=== PATIENT | male | born 1980 | race African-American/Black ===

== ENCOUNTER 2016-05-31 23:55 | Inpatient (IN) | payer OTHER ==
--- NOTE | ~2016-05-31 | CN ---
Consultation Report [facility] [address] [place]. [address] NAME: MADY NICHOLAS : 78 STATUS : ADM Abel PAT#: [id number] AGE: 36 ADM/REG DATE : 06/01/16 MR#: [id number] REPORT SERV DATE: 06/03/16 DICTATED BY: DAMIR MARTINEZ DATE: 06/03/16 REPORT STATUS : Draft TRANSCRIBED BY: MODL DATE: 06/03/16 DATE OF CONSULTATION: REASON FOR CONSULTATION: Elevation in serum creatinine. HISTORY OF PRESENT ILLNESS: This is a very pleasant 36-year-old male patient, who is admitted to [facility] with initial complaint of abdominal pain. He was found to have a ruptured appendix and is POD #2 from laparoscopic excision and appendectomy. He reports a decreased appetite according to initial history and physical prior to evaluation here at [facility] secondary to ongoing abdominal pain. He denies associated nausea and vomiting, and he does not chronically use nonsteroidal medications or supplements in the outpatient setting. The patient does not regularly seek out medical evaluations as he has overall remained reasonably healthy. He does medicinally use marijuana with frequency of daily and has previously used cocaine, although recreationally and on a very rare basis. He continues to use tobacco products, smoking approximately one pack a week per his assessment. 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 The patient is sitting at bedside this afternoon. He denies current chest pain. No nausea, vomiting, or diarrhea and is in no acute distress. His family is present during evaluation. PAST MEDICAL HISTORY: None. PAST SURGICAL HISTORY: POD #2 laparoscopic appendectomy. HOME MEDICATIONS: None. ALLERGIES: NONE. 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 He uses marijuana daily and denies chronic EtOH use. Has previously used cocaine medicinally, but states that he no longer uses it. FAMILY HISTORY: Positive for hypertension and diabetes. REVIEW OF SYSTEMS: Completed, please see HPI for pertinent details. PHYSICAL EXAMINATION: VITAL SIGNS: Blood pressure at 164/102, temperature at 98.4, respiratory rate at 16, he is 95% on room air, heart rate 82 beats per minute and regular. GENERAL: He is awake, alert and oriented x3, in no acute distress, sitting at bedside during evaluation. HEENT: Normocephalic and atraumatic. Normal ocular movements. No scleral icterus or Consultation Report [place] [address] [place]. [address] NAME: MADY NICHOLAS : 78 STATUS : ADM Abel PAT#: [id number] AGE: 36 ADM/REG DATE : 06/01/16 MR#: [id number] REPORT SERV DATE: 06/03/16 DICTATED BY: DAMIR MARTINEZ DATE: 06/03/16 REPORT STATUS : Draft TRANSCRIBED BY: MODBoby DATE: 06/03/16 conjunctival pallor is appreciated. NECK: Supple without thyromegaly. No JVD or mass. CHEST: Shows positive S1 and S2. No rubs or gallops. LUNGS: Clear to auscultation throughout with normal expansion and effort bilaterally. GI: Shows positive bowel sounds in all four quadrants. No appreciable mass or tenderness. : Deferred. EXTREMITIES: Show positive pulses. No clubbing, cyanosis, or edema. NEUROLOGIC: Appears to be grossly intact and nonfocal. SKIN: Warm, dry, and intact to visualized surfaces. No rash, lesions, or ecchymosis. PSYCH: He appears to be grossly intact and is of appropriate mood and affect. LABORATORY DATA: Pertinent laboratories and imaging to this evaluation are as follows: Most recent electrolyte profile: Sodium 143, potassium 3.9, chloride 107, CO2 of 26, BUN 13, creatinine 1.61, reflected GFR 54 mL/minute. CBC: White blood cell count 11.2, RBC 4.37, hemoglobin 12.8, hematocrit 38.1, platelets at 353. B-natriuretic peptide taken on 06/01 at 30.2. Urinalysis collected on entry shows specific gravity of 1.027, pH of 5.0, protein of 30 mg/dL; negative for glucose; negative for ketones; and negative for bilirubin with minimal white blood cells and red blood cells on scan. IMPRESSION AND PLAN: This is a 36-year-old male patient, who is postop day #2 a laparoscopic appendectomy with ruptured appendix eliciting abdominal pain without nausea, vomiting, or other associated factors with a creatinine at 1.61, prompting evaluation for elevated serum creatinine today by his primary. Creatinine trend since the entry has been 1.82, 1.52, now 1.61. The patient does not have an outpatient medical history as he has remained reasonably healthy. He does chronically use marijuana and states that he had recreationally used cocaine at least on one occasion prior. He does appear to have a pattern of chronic hypertension, does exhibit protein and blood on his initial urinalysis, and may possibly have some level of chronic kidney disease. At this point, his baseline is unknown. He may have an acute exacerbation of his serum creatinine in relation to his current co-diagnosis of acute appendicitis. We will check urine studies including urine creatinine, urine sodium, repeated urinalysis to elicit findings for protein or blood. Check a renal ultrasound and considering his previous drug use of cocaine with continued ongoing tobacco abuse and marijuana use, we will also check a Doppler. Check his postvoid residual for assessment of any possible urinary retention, suspect though that this will be benign. Place the patient on strict I's and O's. Daily weights. Continue IV fluids as per current. He is not currently on offensive medications. Possible, however, that Zosyn may cause some elevation in his serum creatinine. If all other avenues are fruitless, may consider removal of Zosyn if not clinically warranted to continue that IV antibiotic. Further modification of treatment plan may be made based on clinical presentation of the patient, laboratory results, and further consultation with Renal attending. We appreciate consultation, we are glad to follow this patient with you. DICTATED BY: Bong Sparrow NP Consultation Report [address] [address] NAME: MADY NICHOLAS : 78 STATUS : ADM Abel PAT#: [id number] AGE: 36 ADM/REG DATE : 06/01/16 MR#: [id number] REPORT SERV DATE: 06/03/16 DICTATED BY: DAMIR MARTINEZ DATE: 06/03/16 REPORT STATUS : Draft TRANSCRIBED BY: PITER DATE: 06/03/16 /PITER Damir Martinez M.D. / [id number] CC: Min Mayen MD
--- NOTE | ~2016-05-31 | HP ---
History And Physical [place] [id number] [facility] [place]. [address] NAME: MADY NICHOLAS : 78 STATUS : ADM Abel PAT#: [id number] AGE: 36 ADM/REG DATE : 06/01/16 MR#: [id number] REPORT SERV DATE: 06/01/16 DICTATED BY: LYNNETTE MAYEN DATE: 06/01/16 REPORT STATUS : Draft TRANSCRIBED BY: MODL DATE: 06/01/16 DATE OF ADMISSION: 06/01/2016 REASON FOR CONSULT: Abdominal pain. HISTORY OF PRESENT ILLNESS: This is a 36-year-old male with approximately three-day history of right lower quadrant pain. He states the pain has always been in his right lower quadrant. It has never moved. He denies any nausea or vomiting, but he does have some decrease in appetite. He states the pain was acutely worse yesterday, but continues to be very severe and came to the emergency department to be evaluated. Here, he was found to have an elevated white count as well as elevated creatinine. A CT scan with stranding around the appendix and dilated appendix consistent with acute appendicitis. The patient denies ever having any pain like this before. Denies any other complaints this time. PAST MEDICAL HISTORY: None. PAST SURGICAL HISTORY: None. HOME MEDICATIONS: None. ALLERGIES: NONE. SOCIAL HISTORY: The patient smokes 1 pack of cigarettes per week and daily marijuana and denies any alcohol use. FAMILY HISTORY: The patient denies. REVIEW OF SYSTEMS: Comprehensive review of systems is performed and is negative other than HPI. PHYSICAL EXAMINATION: GENERAL: This is a 36-year-old male who looks stated age, in no acute distress. VITAL SIGNS: Temp 98.7, heart rate 100, respiratory rate 121/85, respiratory rate 18, O2 saturation 95% on room air. NEUROLOGIC: The patient is alert and oriented x3. No focal sensory or motor deficits. HEENT: The patient is normocephalic. Head is atraumatic. Pupils equal, round, react to light. Extraocular muscles intact. NECK: Soft, supple. Trachea is midline. HEART: Regular rate, rhythm. No murmurs, gallops, or rubs. CHEST: Clear to auscultation bilaterally. No rhonchi. No wheezes. ABDOMEN: Soft, nondistended, tender to palpation in right lower quadrant. No rebound tenderness. Positive bowel sounds. EXTREMITIES: The patient moves all extremities. LABORATORY DATA: 12.3, hemoglobin 12, hematocrit 37, platelets 333. Sodium 144, potassium 3.6, chloride 108, CO2 of 28, BUN 14, creatinine 1.8, glucose 112, History And Physical [address] [address] NAME: MADY NICHOLAS : 78 STATUS : ADM Abel PAT#: [id number] AGE: 36 ADM/REG DATE : 06/01/16 MR#: [id number] REPORT SERV DATE: 06/01/16 DICTATED BY: LYNNETTE MAYEN DATE: 06/01/16 REPORT STATUS : Draft TRANSCRIBED BY: PITER DATE: 06/01/16 lipase 166. ASSESSMENT: This is a 36-year-old male with: 1. Acute appendicitis. 2. Acute kidney injury. PLAN: Admit the patient. The patient has already been started on antibiotics by the ER. We will continue IV fluid resuscitation. Plan on laparoscopic appendectomy later today. Risks, benefits, and alternatives of the procedure have been discussed with patient including bleeding, infection, injury to surrounding structures. He understands and agrees to this plan. This has been discussed with Dr. Mayen who also agrees with this plan. DICTATED BY: MD EFREN Perkins/PITER Lynnette Mayen MD / [id number] CC: Lynnette Mayen MD
--- NOTE | ~2016-05-31 | DS ---
Discharge Summary [facility] [address] [place]. [address] NAME: MADY NICHOLAS : 78 STATUS : DIS IN PAT#: [id number] AGE: 36 ADM/REG DATE : 06/01/16 MR#: [id number] REPORT SERV DATE: 06/16/16 DICTATED BY: LYNNETTE MAYEN DATE: 06/15/16 REPORT STATUS : Draft TRANSCRIBED BY: MODBoby DATE: 06/15/16 Data Collection from hospitalization DISCHARGE DIAGNOSES: 1. Acute ruptured appendicitis with periappendiceal abscess. 2. Tobacco use. 3. Marijuana use. CONSULTATIONS: Shamar Martinez M.D. PROCEDURES PERFORMED: 1. Laparoscopic appendectomy on 06/01/2016. 2. CT scan of the abdomen and pelvis - kidney stone protocol on 06/01/2016. 3. Renal color flow ultrasound on 06/04/2016. PATHOLOGY: Appendix, appendectomy - acute serositis with subserosal abscess at the distal appendix (see comments). Neuronal hypertrophy. MEDICATIONS: Cardizem CD 240 mg daily, Aldactone 25 mg daily, and [place] as instructed. CONDITION AT DISCHARGE: Stable. DISPOSITION: The patient was discharged home on a low-sodium diet with activities as instructed. He would follow up with Dr. Shamar Martinez two weeks following discharge. He would follow up with Dr. Lynnette Mayen as instructed. HOSPITAL COURSE: This is a 36-year-old man who presented with a three-day history of right lower quadrant abdominal pain. A CT scan showed evidence of acute appendicitis with severe inflammatory response adjacent to the appendix. There was no identifiable abscess or free air seen on CT scan. Laparoscopic appendectomy was recommended. He was admitted to the hospital at this time for further evaluation and treatment. Upon admission, he was taken to the operating room where he underwent the above-mentioned procedure. He tolerated this well, and there were no complications. On postop day #1, the patient was sore. He had not been out of bed. Creatinine level had decreased to 1.5. White count was 15. We encouraged him to mobilize and use the incentive spirometer. On 06/03/2016, he was tolerating liquids. He had no nausea or vomiting. He was walking better. He had no shortness of breath. Blood pressure was elevated as well as his creatinine level. It was suspected that this was a intermediate issue. Creatinine level was 1.6. On 06/03/2016, he was seen by Dr. Shamar Martinez regarding elevation in serum creatinine. The patient does not chronically use nonsteroidal medications or supplements. He does not regularly seek out medical evaluations and he had overall remained relatively healthy. He does medicinally use marijuana with frequency of daily and he had previously used cocaine, although recreationally and on a very rare basis. He continued to use tobacco products, smoking approximately one pack per week. 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 He was sitting in a bedside chair at this time. He denied any current chest pain, nausea, vomiting, or diarrhea. He was in no acute distress. Discharge Summary [address] [address] NAME: MADY NICHOLAS : 78 STATUS : DIS IN PAT#: [id number] AGE: 36 ADM/REG DATE : 06/01/16 MR#: [id number] REPORT SERV DATE: 06/16/16 DICTATED BY: LYNNETTE MAYEN DATE: 06/15/16 REPORT STATUS : Draft TRANSCRIBED BY: PITER DATE: 06/15/16 Creatinine level was 1.61. He does appear to have a pattern of chronic hypertension. He does exhibit protein and blood on his initial urinalysis and there may possibly be some level of chronic kidney disease. He may have an exacerbation of his serum creatinine in relation to his current co-diagnosis of acute appendicitis. Urine studies including urine creatinine, urine sodium, and repeat urinalysis would be performed. A renal ultrasound was requested. Postvoid residual was going to be checked for possible urinary retention, although it was suspected that this would be benign. IV fluids were continued. Zosyn may cause some elevation in his serum creatinine. We may consider removal of Zosyn if not clinically warranted to continue that as IV antibiotics. On 06/04/2016, his blood pressure remained high. His wounds were clean. His drain was still in place. White count was 12. Renal artery ultrasound was performed. Cardizem was increased. Over the next couple of days, he continued to do well. Discharge planning was performed. Aldactone was added. On 06/06/2016, his abdomen was soft and nontender. He had no edema. He was alert and cooperative. Creatinine level was 1.61. Discharge instructions were given. Due to his improved and stable condition, he was discharged home with the above stated instructions. Information collected by: Mecca Pulliam I submit the above information as my discharge summary. TG/MODL Lynnette Mayen MD / [id number] CC: MD Shamar Ramon M.D.
--- NOTE | ~2016-05-31 | OP ---
Record Of Operation [facility] [address] [place]. [address] NAME: MADY NICHOLAS : 78 STATUS : ADM Abel PAT#: [id number] AGE: 36 ADM/REG DATE : 06/01/16 MR#: [id number] REPORT SERV DATE: 06/01/16 DICTATED BY: LYNNETTE MAYEN DATE: 06/01/16 REPORT STATUS : Draft TRANSCRIBED BY: MODL DATE: 06/01/16 DATE OF PROCEDURE: 06/01/2016 PREOPERATIVE DIAGNOSIS: Acute appendicitis. POSTOPERATIVE DIAGNOSIS: Acute ruptured appendicitis with periappendiceal abscess. PROCEDURE: Laparoscopic appendectomy. SURGEON: Lynnette Mayen MD. ANESTHESIA: General. ESTIMATED BLOOD LOSS: 100 mL. IV FLUIDS: 800 mL. SPECIMEN: Appendix. COMPLICATIONS: None. BRIEF HISTORY: Mr. Nicholas is a 36-year-old man who presented with a 3-day history of right lower quadrant abdominal pain. CT scan showed evidence of acute appendicitis with severe inflammatory response adjacent to the appendix. There was no identifiable abscess or free air seen on scan. Laparoscopic appendectomy was recommended. The procedure with the risks including bleeding, infection, injury to surrounding structures, requiring open operation, staple line leak, bleeding the fecal fistula or stool formation or hernia formation were all explained. He agreed to proceed. DESCRIPTION OF PROCEDURE: After consent was obtained, he was taken to the operating room and placed in supine position on the operating table. General endotracheal anesthesia was administered. The abdomen was then clipped and prepped and draped in normal sterile fashion. Preoperative antibiotics were administered. SCDs were placed. Time-out was performed. We began by injecting local anesthesia into the umbilicus. A 15 blade scalpel was used to open the umbilicus and the [place] umbilical defect was entered. A 12 mm trocar was inserted. The abdomen was insufflated to 15 mmHg of CO2 gas. Scope was inserted. There was no evidence of injury upon placement of the trocar. After infiltration of local anesthesia and under direct visualization, a 5 mm trocar was placed in the right upper quadrant and the suprapubic position. He was then placed in Trendelenburg position with left tilt. We then inspected the right lower quadrant. We identified the cecum, which was soft and the terminal ilium, which was very inflamed and firm. It was plastered up to the lateral side wall, and I could not initially peel this away. I then traced the tenia down to the base of Record Of Operation [facility] [address] [facility] [address] NAME: MADY NICHOLAS : 78 STATUS : ADM Abel PAT#: [id number] AGE: 36 ADM/REG DATE : 06/01/16 MR#: [id number] REPORT SERV DATE: 06/01/16 DICTATED BY: LYNNETTE MAYEN DATE: 06/01/16 REPORT STATUS : Draft TRANSCRIBED BY: MODBoby DATE: 06/01/16 the appendix, which was identified and soft and small. This coursed laterally down to the pelvic sidewall and then curved down toward the pelvis and was plastered up against the lateral sidewall adjacent to the ilium where this firm area was initially identified. I began first at the base and then traced this laterally and dissected the appendix away from the cecum. Once we got to the genu, I switched to a 30-degree camera, so that I could see the posterior retroperitoneum and dissected the attachments away from the genu of the appendix away from the retroperitoneum. Once it was elevated, I could not initially get this distal area dissected; therefore, I created a window at the base of the appendix and divided the base of the appendix using a LATONIA tissue load. I then continued this tedious dissection away from the terminal ilium and identified an abscess cavity where this firm area was located. This was suctioned. Then, I continued the dissection away from the retroperitoneum and elevated the appendix until I was able to ultimately get it off the lateral sidewall. This took significant amount of dissection. There was an abscess cavity, which was entered and then, the appendix was ruptured at the tip. Ultimately, I was able to get all this elevated and freed away from the terminal ilium with significant difficult dissection and then placed a vascular stapler across the mesoappendix and it was divided. It was then placed within an endobag and was removed through the umbilicus. I inspected the right lower quadrant. There was bleeding coming from the lateral aspect of mesoappendix, which was difficult to control. After multiple clips in this area and then ultimately cautery was able to create hemostasis. I irrigated the right lower quadrant as well as the right upper quadrant copiously with sterile saline until clear. Hemostasis was good. Given the infection and the abscess cavity with rupture, I elected to place a 19- Po drain, placed it through the suprapubic port and secured it into the right lower quadrant and secured to the skin using a 3-0 nylon suture. All trocars were removed under direct visualization. There was no evidence of bleeding. The abdomen was desufflated. Fascia at the umbilicus closed using a 0 Vicryl [id number]-rc-qotxy suture. All skin incisions were irrigated with sterile saline and closed using a 4-0 Monocryl subcuticular stitch. The abdomen was cleaned and sterile dressings were applied. The patient tolerated the procedure well and was extubated in the operating room and sent to the recovery room in stable condition. Due to the difficult dissection, excessive blood loss, as well as extra time taken for the case, I am applying a 22 modifier. KIMBERLY/PITER Lynnette Mayen MD / [id number] CC: Record Of Operation [address] [address] NAME: MADY NICHOLAS : 78 STATUS : ADM Abel PAT#: [id number] AGE: 36 ADM/REG DATE : 06/01/16 MR#: [id number] REPORT SERV DATE: 06/01/16 DICTATED BY: LYNNETTE MAYEN PUYALLUP DATE: 06/01/16 REPORT STATUS : Draft TRANSCRIBED BY: MODL DATE: 06/01/16 Lynnette Mayen MD
[2016-06-01 00:26] LABS: BASOPHILS 0.5 %; BASOPHILS ABSOLUTE 0.06 10/3/uL (0.0-0.16); EOSINOPHILS 5.1 %; EOSINOPHILS ABSOLUTE 0.62 10/3/uL (0.0-0.53); ER CBC TAT 0 Hrs 00 Mins; HEMATOCRIT 37.3 % (40.0-51.0); HEMOGLOBIN 12.9 g/dL (13.6-17.8); IMMATURE GRANULOCYTES 0.2 %; IMMATURE GRANULOCYTES ABSOLUTE 0.03 10/3/uL (0.0-0.11); LYMPHOCYTES 25.9 %; LYMPHOCYTES ABSOLUTE 3.18 10/3/uL (0.67-4.30); MANUAL DIFF NO %; MEAN CORPUS HGB CONC 34.6 g/dL (32.0-36.0); MEAN CORPUSCULAR HEMOGLOB 30.1 pg (26.0-34.0); MEAN CORPUSCULAR VOLUME 87.1 fL (80-100); MEAN PLATELET VOLUME 9.6 fL (9.2-13.0); MONOCYTES 4.3 %; MONOCYTES ABSOLUTE 0.53 10/3/uL (0.21-1.20); NEUTROPHILS ABSOLUTE 7.84 10/3/uL (2.02-8.40); PLATELET COUNT 333 10/3/uL (150-400); RBC DISTRIBUTION WIDTH 13.5 % (12.0-16.0); RED CELL COUNT 4.28 10/6/uL (4.7-6.1); WHITE BLOOD CELLS 12.3 10/3/uL (4.5-10.5)
[2016-06-01 00:38] LABS: ASCORBIC ACID (UR NOT ORDER) NEG (NEG); BILIRUBIN, URINE NEGATIVE (NEG); ER URINALYSIS TAT 0 Hrs 00 Mins; KETONE, URINE NEGATIVE (NEG); LEUKOCYTE ESTERASE(NOT OR NEG (NEG); NITRITE (URINE) NEG (NEG); WBC (NOT ORDERED) (RFLEX) 5 (0-5)
[2016-06-01 00:43] LABS: A/G RATIO 0.8 (0.7-1.9); ALBUMIN 3.6 G/DL (3.5-5.0); ALKALINE PHOSPHATASE 108 U/L (45-117); BUN (BLOOD UREA NITROGEN) 14 MG/DL (6-23); CALCIUM, SERUM 8.7 MG/DL (8.5-10.4); CHLORIDE, SERUM 108 MMOL/L (96-112); CO2 (CARBON DIOXIDE) 28 MMOL/L (24-34); CREATININE 1.82 MG/DL (0.70-1.30); GFR AFRICAN AMERICAN 54 ML/MIN (>=60); GFR NON AFRICAN AMERICAN 46 ML/MIN (>=60); GLOBULIN 4.3 G/DL (2.5-4.1); GLUCOSE, SERUM 112 MG/DL (60-99); POTASSIUM, SERUM 3.6 MMOL/L (3.5-5.3); SGOT(AST) 20 U/L (5-40); SGPT(ALT) 45 U/L (5-65); SODIUM, SERUM 144 MMOL/L (135-148); TOTAL BILIRUBIN 0.2 MG/DL (0-1.2); TOTAL PROTEIN 7.9 G/DL (6.0-8.5)
[2016-06-01] MEDS ORDERED: *DENIES (05:53)
[2016-06-02 07:13] LABS: BASOPHILS 0.1 %; BASOPHILS ABSOLUTE 0.01 10/3/uL (0.0-0.16); EOSINOPHILS 0.1 %; EOSINOPHILS ABSOLUTE 0.01 10/3/uL (0.0-0.53); HEMATOCRIT 35.4 % (40.0-51.0); HEMOGLOBIN 11.9 g/dL (13.6-17.8); IMMATURE GRANULOCYTES 0.2 %; IMMATURE GRANULOCYTES ABSOLUTE 0.03 10/3/uL (0.0-0.11); LYMPHOCYTES 15.4 %; LYMPHOCYTES ABSOLUTE 2.31 10/3/uL (0.67-4.30); MEAN CORPUS HGB CONC 33.6 g/dL (32.0-36.0); MEAN CORPUSCULAR HEMOGLOB 29.5 pg (26.0-34.0); MEAN CORPUSCULAR VOLUME 87.6 fL (80-100); MONOCYTES 6.2 %; MONOCYTES ABSOLUTE 0.93 10/3/uL (0.21-1.20); PLATELET COUNT 306 10/3/uL (150-400); RBC DISTRIBUTION WIDTH 13.4 % (12.0-16.0); RED CELL COUNT 4.04 10/6/uL (4.7-6.1)
[2016-06-02 07:15] LABS: MANUAL DIFF NO %
[2016-06-02 07:42] LABS: BUN (BLOOD UREA NITROGEN) 12 MG/DL (6-23); CALCIUM, SERUM 8.6 MG/DL (8.5-10.4); CHLORIDE, SERUM 111 MMOL/L (96-112); CREATININE 1.55 MG/DL (0.70-1.30); GFR AFRICAN AMERICAN 65 ML/MIN (>=60); GFR NON AFRICAN AMERICAN 56 ML/MIN (>=60); GLUCOSE, SERUM 94 MG/DL (60-99); POTASSIUM, SERUM 3.9 MMOL/L (3.5-5.3); SODIUM, SERUM 143 MMOL/L (135-148)
[2016-06-02 07:43] LABS: CO2 (CARBON DIOXIDE) 23 MMOL/L (24-34)
[2016-06-03 06:52] LABS: BASOPHILS 0.3 %; BASOPHILS ABSOLUTE 0.03 10/3/uL (0.0-0.16); EOSINOPHILS 3.1 %; EOSINOPHILS ABSOLUTE 0.35 10/3/uL (0.0-0.53); HEMATOCRIT 38.1 % (40.0-51.0); HEMOGLOBIN 12.8 g/dL (13.6-17.8); IMMATURE GRANULOCYTES 0.2 %; IMMATURE GRANULOCYTES ABSOLUTE 0.02 10/3/uL (0.0-0.11); LYMPHOCYTES 22.3 %; LYMPHOCYTES ABSOLUTE 2.49 10/3/uL (0.67-4.30); MANUAL DIFF NO %; MEAN CORPUS HGB CONC 33.6 g/dL (32.0-36.0); MEAN CORPUSCULAR HEMOGLOB 29.3 pg (26.0-34.0); MEAN CORPUSCULAR VOLUME 87.2 fL (80-100); MEAN PLATELET VOLUME 9.6 fL (9.2-13.0); MONOCYTES 5.2 %; MONOCYTES ABSOLUTE 0.58 10/3/uL (0.21-1.20); NEUTROPHILS 68.9 %; PLATELET COUNT 353 10/3/uL (150-400); RBC DISTRIBUTION WIDTH 13.4 % (12.0-16.0); RED CELL COUNT 4.37 10/6/uL (4.7-6.1); WHITE BLOOD CELLS 11.2 10/3/uL (4.5-10.5)
[2016-06-03 07:06] LABS: BUN (BLOOD UREA NITROGEN) 13 MG/DL (6-23); CHLORIDE, SERUM 107 MMOL/L (96-112); CO2 (CARBON DIOXIDE) 26 MMOL/L (24-34); CREATININE 1.61 MG/DL (0.70-1.30); GFR AFRICAN AMERICAN 62 ML/MIN (>=60); GFR NON AFRICAN AMERICAN 54 ML/MIN (>=60); GLUCOSE, SERUM 92 MG/DL (60-99); POTASSIUM, SERUM 3.9 MMOL/L (3.5-5.3); SODIUM, SERUM 143 MMOL/L (135-148)
[2016-06-03 23:25] LABS: ASCORBIC ACID (UR NOT ORDER) NEG (NEG); BILIRUBIN, URINE NEGATIVE (NEG); KETONE, URINE 20 MG/DL (NEG); LEUKOCYTE ESTERASE(NOT OR NEG (NEG); WBC (NOT ORDERED) (RFLEX) < 1 (0-5)
[2016-06-04 06:52] LABS: BASOPHILS 0.4 %; BASOPHILS ABSOLUTE 0.05 10/3/uL (0.0-0.16); EOSINOPHILS 0.9 %; EOSINOPHILS ABSOLUTE 0.11 10/3/uL (0.0-0.53); HEMATOCRIT 40.8 % (40.0-51.0); HEMOGLOBIN 14.1 g/dL (13.6-17.8); IMMATURE GRANULOCYTES 0.2 %; IMMATURE GRANULOCYTES ABSOLUTE 0.03 10/3/uL (0.0-0.11); LYMPHOCYTES 14.7 %; LYMPHOCYTES ABSOLUTE 1.79 10/3/uL (0.67-4.30); MEAN CORPUS HGB CONC 34.6 g/dL (32.0-36.0); MEAN CORPUSCULAR HEMOGLOB 29.6 pg (26.0-34.0); MEAN CORPUSCULAR VOLUME 85.5 fL (80-100); MEAN PLATELET VOLUME 9.6 fL (9.2-13.0); MONOCYTES 4.7 %; MONOCYTES ABSOLUTE 0.57 10/3/uL (0.21-1.20); NEUTROPHILS 79.1 %; NEUTROPHILS ABSOLUTE 9.61 10/3/uL (2.02-8.40); PLATELET COUNT 392 10/3/uL (150-400); RBC DISTRIBUTION WIDTH 13.3 % (12.0-16.0); RED CELL COUNT 4.77 10/6/uL (4.7-6.1); WHITE BLOOD CELLS 12.2 10/3/uL (4.5-10.5)
[2016-06-04 06:54] LABS: MANUAL DIFF NO %
[2016-06-04 07:02] LABS: ALBUMIN 3.3 G/DL (3.5-5.0); BUN (BLOOD UREA NITROGEN) 12 MG/DL (6-23); CALCIUM, SERUM 9.1 MG/DL (8.5-10.4); CHLORIDE, SERUM 107 MMOL/L (96-112); CO2 (CARBON DIOXIDE) 23 MMOL/L (24-34); CREATININE 1.33 MG/DL (0.70-1.30); GFR AFRICAN AMERICAN 79 ML/MIN (>=60); GFR NON AFRICAN AMERICAN 68 ML/MIN (>=60); GLUCOSE, SERUM 104 MG/DL (60-99); PHOSPHORUS, SERUM 2.6 MG/DL (2.5-4.5); POTASSIUM, SERUM 3.5 MMOL/L (3.5-5.3); SODIUM, SERUM 141 MMOL/L (135-148)
[2016-06-04 07:29] LABS: PROCALCITONIN 0.25 ng/mL (<0.5)
[2016-06-05 07:58] LABS: ALBUMIN 3.2 G/DL (3.5-5.0); BUN (BLOOD UREA NITROGEN) 13 MG/DL (6-23); CHLORIDE, SERUM 109 MMOL/L (96-112); CO2 (CARBON DIOXIDE) 25 MMOL/L (24-34); CREATININE 1.38 MG/DL (0.70-1.30); GFR AFRICAN AMERICAN 75 ML/MIN (>=60); GFR NON AFRICAN AMERICAN 65 ML/MIN (>=60); GLUCOSE, SERUM 97 MG/DL (60-99); PHOSPHORUS, SERUM 2.5 MG/DL (2.5-4.5); SODIUM, SERUM 142 MMOL/L (135-148)
[2016-06-05 08:00] LABS: POTASSIUM, SERUM 3.7 MMOL/L (3.5-5.3)
[2016-06-06 06:54] LABS: BASOPHILS 0.5 %; BASOPHILS ABSOLUTE 0.05 10/3/uL (0.0-0.16); EOSINOPHILS 4.1 %; HEMATOCRIT 41.8 % (40.0-51.0); HEMOGLOBIN 14.6 g/dL (13.6-17.8); IMMATURE GRANULOCYTES 0.3 %; IMMATURE GRANULOCYTES ABSOLUTE 0.03 10/3/uL (0.0-0.11); LYMPHOCYTES 22.9 %; LYMPHOCYTES ABSOLUTE 2.25 10/3/uL (0.67-4.30); MEAN CORPUS HGB CONC 34.9 g/dL (32.0-36.0); MEAN CORPUSCULAR HEMOGLOB 30.2 pg (26.0-34.0); MEAN CORPUSCULAR VOLUME 86.4 fL (80-100); MEAN PLATELET VOLUME 9.6 fL (9.2-13.0); MONOCYTES 6.1 %; NEUTROPHILS 66.1 %; NEUTROPHILS ABSOLUTE 6.48 10/3/uL (2.02-8.40); PLATELET COUNT 409 10/3/uL (150-400); RBC DISTRIBUTION WIDTH 13.5 % (12.0-16.0); RED CELL COUNT 4.84 10/6/uL (4.7-6.1); WHITE BLOOD CELLS 9.8 10/3/uL (4.5-10.5)
[2016-06-06 07:03] LABS: MANUAL DIFF NO %
[2016-06-06 07:06] LABS: ALBUMIN 3.4 G/DL (3.5-5.0); BUN (BLOOD UREA NITROGEN) 18 MG/DL (6-23); CALCIUM, SERUM 9.2 MG/DL (8.5-10.4); CHLORIDE, SERUM 108 MMOL/L (96-112); CO2 (CARBON DIOXIDE) 24 MMOL/L (24-34); CREATININE 1.61 MG/DL (0.70-1.30); GFR AFRICAN AMERICAN 62 ML/MIN (>=60); GFR NON AFRICAN AMERICAN 54 ML/MIN (>=60); GLUCOSE, SERUM 103 MG/DL (60-99); PHOSPHORUS, SERUM 4.1 MG/DL (2.5-4.5); POTASSIUM, SERUM 3.6 MMOL/L (3.5-5.3); SODIUM, SERUM 142 MMOL/L (135-148)
[2016-06-06] MEDS ORDERED: SPIRO25 PO (13:27)
[2016-06-06] MEDS ORDERED: NORCO1 TA1 PO (13:27)
[2016-06-06] MEDS ORDERED: CARDCD240 PO (13:28)
== END 2016-06-06 15:33 | disposition home or self-care (01) | DRG 338 ==
LOC: ER 23:55 → 4SO 06-01 05:16
PROVIDERS: Pathology Anatomic Pathology & Clinical Pathology; Registered Nurse; Specialist; Surgery
PROC: 0DTJ4ZZ Resection of Appendix, Percutaneous Endoscopic Approach (ICD-10-PCS; principal; 2016-06-01 12:15)
DX: K35.3 Acute appendicitis with localized peritonitis (principal); N17.0 Acute kidney failure with tubular necrosis; F17.210 Nicotine dependence, cigarettes, uncomplicated; F12.90 Cannabis use, unspecified, uncomplicated; F14.90 Cocaine use, unspecified, uncomplicated; I12.9 Hypertensive chronic kidney disease with stage 1 through stage 4 chronic kidney disease, or unspecified chronic kidney disease; N18.3 Chronic kidney disease, stage 3 (moderate)
CPT/HCPCS: 74176; 80048; 80053; 80069; 81001; 83690; 83880; 84145; 84300; 85025; 88304; 93005; 93975; 96365; 99285; A9270-GY; J0360; J1170; J2250; J2405; J2543; J2710; J3010